=== PATIENT | male | born 1975 | race Caucasian/White ===

== ENCOUNTER → 2021-06-26 07:57 | Outpatient (CLI) | payer BC, OTHER, SELFPAY ==
--- NOTE | ~2021-06-26 | US_ITS ---
US abdomen complete DATE: 06/26/2021 08:24 INDICATION: Elevated liver transaminase levels TECHNIQUE: Real-time imaging and Doppler analysis of the abdomen COMPARISON: None FINDINGS: No hepatic or pancreatic space-occupying mass lesion. Normal hepatopedal portal venous flow direction. The common bile duct measures 3 mm, within normal range. No gallstones or gallbladder wal l thickening or pericholecystic fluid collection. Normal splenic size. No renal mass lesion or hydronephrosis. Normal caliber of the abdominal aorta. The inferior vena cava is unremarkable. IMPRESSION: No significant abnormality Reviewed, dictated and finalized at [facility]. Reviewed, dictated and finalized at [facility]. DECORATOR IMPRESSION: No significant abnormality
== END ==
PROVIDERS: PCP Physician Assistant; Visit Provider Physician Assistant
DX: R74.01 Elevation of levels of liver transaminase levels (principal)
CPT/HCPCS: 76700